=== PATIENT | male | born 1960 | race Two or more races ===

== ENCOUNTER 2017-03-13 02:12 | Emergency (ER) | payer OTHER ==
[2017-03-13 03:14] LABS: CALCIUM 8.2 mg/dL (8.5-10.1); CARBON DIOXIDE 21.7 mmol/L (21-32); CHLORIDE SERUM 106 mmol/L (98-107); CREATININE SERUM 1.2 mg/dL (0.7-1.3); GFR1 > 60 mL/min; GLUCOSE SERUM 133 mg/dL (74-106); POTASSIUM SERUM 3.7 mmol/L (3.5-5.1); SODIUM SERUM 140 mmol/L (136-145)
[2017-03-13 03:18] LABS: ALBUMIN 3.7 g/dL (3.4-5.0); ALKALINE PHOSPHATASE 63 U/L (46-116); ALT/SGPT 43 U/L (16-63); AST/SGOT 24 U/L (15-37); BILIRUBIN TOTAL 0.43 mg/dL (0.20-1.00)
[2017-03-13 03:32] LABS: BASOPHIL % 0.1 % (0-2); RED CELL DISTRIBUTION WIDTH 12.7 % (11.5-14.5)
[2017-03-13 03:39] LABS: PLATELET COUNT 128 x10^3mcL (130-400)
[2017-03-13 05:19] VITALS: BP 114/74
== END 2017-03-13 05:19 | disposition home or self-care (01) ==
LOC: ED 02:12
PROVIDERS: Emergency Medicine
DX: M25.512 Pain in left shoulder (principal); E78.00 Pure hypercholesterolemia, unspecified
CPT/HCPCS: 36415; Q0092